=== PATIENT | male | born 1975 | race Caucasian/White ===

== ENCOUNTER 2022-07-29 19:00 | Outpatient (CLI) | payer BC | END 2022-07-29 19:01 | disposition home or self-care (01) | LOC: SLEEPLAB 19:00 | PROVIDERS: ATTEND Family Medicine | DX: G47.33 Obstructive sleep apnea (adult) (pediatric) (principal); G47.419 Narcolepsy without cataplexy; R53.83 Other fatigue; G31.84 Mild cognitive impairment of uncertain or unknown etiology; R06.83 Snoring; G47.10 Hypersomnia, unspecified; J45.909 Unspecified asthma, uncomplicated; G47.00 Insomnia, unspecified | CPT/HCPCS: 95810 ==

== ENCOUNTER 2024-08-29 04:25 | Inpatient (IN) | payer BC ==
[2024-08-29] MEDS ORDERED: Calcium Carbonate 500 MG ChewTAB PO PRN (06:04)
[2024-08-29] MEDS ORDERED: Acetaminophen 325 MG TAB PO PRN (06:04)
[2024-08-29] MEDS ORDERED: Senokot S 8.6-50 MG TAB PO PRN (06:04)
[2024-08-29 06:46] VITALS: BMI 26.6
[2024-08-29] MEDS ORDERED: cefTRIAXone\\ROCEPHIN 2 GM in Sodium Chloride 0.9% 100 ML IVPB SCH (07:15)
[2024-08-29] MEDS: Sodium Chloride 0.9% 1,000 ML IV SCH (07:16)
[2024-08-29] MEDS ORDERED: Morphine 2 MG/ML VIAL ONE ×2 (08:46→12:34)
[2024-08-29] MEDS ORDERED: Ondansetron PF 4 MG/2 ML Vial ONE ×2 (08:46→13:59)
[2024-08-29] MEDS ORDERED: Sodium Chloride 0.9% 100 ML ONE (08:47)
[2024-08-29] MEDS ORDERED: cefTRIAXone (ROCEPHIN) 1 GM VIAL ONE (08:47)
[2024-08-29] MEDS: Morphine 2 MG/ML VIAL SLOW IVP PRN (08:53)
[2024-08-29] MEDS: Ondansetron PF 4 MG/2 ML Vial IVP PRN (08:54)
[2024-08-29] MEDS ORDERED: Dexamethasone 4 mg/ml Vial ONE (13:59)
[2024-08-29] MEDS ORDERED: fentaNYL PF 100 MCG/2 ML SYRINGE ONE (13:59)
[2024-08-29] MEDS ORDERED: Lidocaine 2% PF 5 ML VIAL ONE (13:59)
[2024-08-29] MEDS ORDERED: Rocuronium Bromide 10 MG/ML (10ML VIAL) ONE (13:59)
[2024-08-29] MEDS ORDERED: Midazolam HCl 2 mg/2 ml Vial ONE (14:00)
[2024-08-29] MEDS ORDERED: PROPOFOL 20 ML ONE (14:00)
[2024-08-29] MEDS ORDERED: Iopamidol 15 ML ONE (14:24)
[2024-08-29] MEDS ORDERED: SUGAMMADEX SODIUM 200 MG/2 ML VIAL ONE ×2 (14:49→14:59)
[2024-08-29] MEDS: HYDROcodone/Acetaminophen 5/325 mg Tablet PO PRN (18:09)
[2024-08-29] MEDS: Docusate 100 MG CAP PO SCH (20:45)
[2024-08-29] MEDS: Phenazopyridine HCl 100 MG TAB PO SCH (20:45)
[2024-08-30 04:37] LABS: #Basophils Less than 0.03 10x3/uL (0.0-0.2); #Eosinophils Less than 0.03 10x3/uL (0.0-0.7); %Basophils 0.2 % (0.0-1.0); %Lymphocytes 15.5 % (21.0-51.0); %Monocytes 9.3 % (0.0-10.0); %Neutrophils 74.8 % (42.0-75.0); Hematocrit 42.6 % (42.0-52.0); Hemoglobin 14.6 g/dL (14.0-18.0); Mean Corpuscular HGB CONC 34.3 g/dL (32.0-36.0); Mean Corpuscular Hemoglobin 30.6 pg (27.0-31.0); Mean Corpuscular Volume 89.3 fL (78.0-98.0); Mean Platelet Volume 11.1 fL (7.4-10.4); Platelet Count 198 10x3/uL (130-400); RBC Distribution Width 12.5 % (11.5-14.5); Red Blood Cell (RBC) Count 4.77 mill/uL (4.70-6.10)
[2024-08-30] MEDS: HYDROcodone/Acetaminophen 5/325 mg Tablet PO PRN (04:44)
[2024-08-30 05:05] LABS: ALT (SGPT) 48 U/L (8-55); AST (SGOT) 31 U/L (5-34); Albumin 3.5 g/dL (3.5-5.0); Alkaline Phosphatase 70 U/L (40-110); Anion Gap 15 mmol/L (10-20); BUN (Urea Nitrogen) 14 mg/dL (8.9-20.6); Bilirubin, Total 0.4 mg/dL (0.2-1.2); Calc. Creatinine Clearance 123 mL/min (70-130); Calcium 8.2 mg/dL (7.8-10.44); Carbon Dioxide 21 mmol/L (22-29); Chloride 108 mmol/L (98-107); Estimated GFR 86; Globulin 2.9 g/dL (2.4-3.5); Glucose 149 mg/dL (70-105); Potassium 4.7 mmol/L (3.5-5.1); Protein, Total 6.4 g/dL (6.0-8.3); Sodium 139 mmol/L (136-145)
[2024-08-30] MEDS ORDERED: Bisacodyl 10 MG SUPP PR PRN (08:01)
[2024-08-30] MEDS: cefTRIAXone\\ROCEPHIN 1 GM in Sodium Chloride 0.9% 100 ML IVPB SCH (08:42)
[2024-08-30] MEDS: Polyethylene Glycol 3350 17 GM Packet PO SCH (08:42)
[2024-08-30] MEDS: Tamsulosin HCl 0.4 MG CAP PO SCH (08:42)
[2024-08-30] MEDS: Bisacodyl 10 MG SUPP PR SCH (08:43)
[2024-08-30] MEDS: Oxybutynin 5 MG TAB PO PRN (21:34)
[2024-08-31] MEDS ORDERED: Hyoscyamine SL 0.125 MG TAB SL PRN (03:39)
[2024-08-31] MEDS: Ketorolac Tromethamine 30 MG (1 mL) VIAL IVP PRN (04:10)
[2024-08-31 05:13] LABS: #Basophils 0.04 10x3/uL (0.0-0.2); %Basophils 0.6 % (0.0-1.0); %Eosinophils 1.3 % (0.0-10.0); %Lymphocytes 31.2 % (21.0-51.0); %Monocytes 10.3 % (0.0-10.0); %Neutrophils 56.3 % (42.0-75.0); Hematocrit 42.4 % (42.0-52.0); Hemoglobin 14.1 g/dL (14.0-18.0); Mean Corpuscular HGB CONC 33.3 g/dL (32.0-36.0); Mean Corpuscular Hemoglobin 30.1 pg (27.0-31.0); Mean Corpuscular Volume 90.4 fL (78.0-98.0); Mean Platelet Volume 11.2 fL (7.4-10.4); Platelet Count 167 10x3/uL (130-400); RBC Distribution Width 12.8 % (11.5-14.5); Red Blood Cell (RBC) Count 4.69 mill/uL (4.70-6.10)
[2024-08-31 06:04] LABS: Anion Gap 13 mmol/L (10-20); BUN (Urea Nitrogen) 14 mg/dL (8.9-20.6); Calc. Creatinine Clearance 95 mL/min (70-130); Calcium 8.4 mg/dL (7.8-10.44); Carbon Dioxide 24 mmol/L (22-29); Chloride 109 mmol/L (98-107); Estimated GFR 62; Glucose 91 mg/dL (70-105); Potassium 4.4 mmol/L (3.5-5.1); Sodium 142 mmol/L (136-145)
[2024-08-31] MEDS: Sodium Chloride 0.9% 1,000 ML IV SCH (08:34)
[2024-08-31] MEDS: cefTRIAXone\\ROCEPHIN 2 GM in Sodium Chloride 0.9% 100 ML IVPB SCH (08:35)
[2024-08-31] MEDS ORDERED: Iopamidol 0 ML ONE (13:25)
[2024-08-31] MEDS ORDERED: Iopamidol 30 ML ONE (13:26)
[2024-08-31] MEDS ORDERED: fentaNYL PF 100 MCG/2 ML SYRINGE ONE ×2 (13:28→14:41)
[2024-08-31] MEDS ORDERED: PROPOFOL 20 ML ONE (13:28)
[2024-08-31] MEDS ORDERED: Midazolam HCl 2 mg/2 ml Vial ONE (13:28)
[2024-08-31] MEDS ORDERED: Ondansetron PF 4 MG/2 ML Vial ONE (13:58)
[2024-08-31] MEDS ORDERED: Dexamethasone 4 mg/ml Vial ONE (13:58)
[2024-08-31] MEDS ORDERED: ePHEDrine Sulfate 50 MG/10 ML VIAL ONE (14:02)
[2024-08-31] MEDS ORDERED: SUGAMMADEX SODIUM 200 MG/2 ML VIAL ONE (14:55)
[2024-08-31] MEDS ORDERED: Ketorolac Tromethamine 30 MG (1 mL) VIAL ONE (15:03)
[2024-08-31] MEDS ORDERED: Ondansetron HCl/PF 4 MG/2 ML Vial IVP PRN (15:24)
[2024-08-31] MEDS ORDERED: Promethazine HCl 25 MG/ML VIAL IM PRN (15:24)
[2024-08-31] MEDS ORDERED: Meperidine HCl/PF 25 MG/ML VIAL SLOW IVP PRN (15:24)
[2024-08-31] MEDS ORDERED: Meperidine HCl/PF 25 MG (1 mL) VIAL ONE (15:35)
[2024-08-31] MEDS ORDERED: Ciprofloxacin 500 MG TAB PO SCH (20:00)
[2024-09-01 08:31] VITALS: BP 166/91; TEMP 97.5
== END 2024-09-01 11:24 | disposition home or self-care (01) | DRG 660 ==
LOC: ERS 04:25 → ERHOLD 06:05 → SURG A 12:41 → SURG B 17:20 → OBSVTOIN 08-30 11:48
PROVIDERS: ADMIT Internal Medicine; ATTEND Internal Medicine
PROC: 0T788DZ Dilation of Bilateral Ureters with Intraluminal Device, Via Natural or Artificial Opening Endoscopic (ICD-10-PCS; principal; 2024-08-29)
PROC: 0T788DZ Dilation of Bilateral Ureters with Intraluminal Device, Via Natural or Artificial Opening Endoscopic (ICD-10-PCS; 2024-08-31)
PROC: 0TP98DZ Removal of Intraluminal Device from Ureter, Via Natural or Artificial Opening Endoscopic (ICD-10-PCS; 2024-08-31)
PROC: 0TC78ZZ Extirpation of Matter from Left Ureter, Via Natural or Artificial Opening Endoscopic (ICD-10-PCS; 2024-08-31)
PROC: 0TC68ZZ Extirpation of Matter from Right Ureter, Via Natural or Artificial Opening Endoscopic (ICD-10-PCS; 2024-08-31)
DX: N13.6 Pyonephrosis (principal); N30.01 Acute cystitis with hematuria; N17.9 Acute kidney failure, unspecified
CPT/HCPCS: 36415; 74176; 74420; 80048; 80053; 81001; 85025; 87086; 96361; 96374; 96375; 96376; C1747; C1769; C2617; G0378; J0696; J1100; J1885; J2175; J2250; J2272; J2405; J2704; J7030; Q9967